=== PATIENT | female | born 1975 ===

== ENCOUNTER 2018-12-06 08:20 | Emergency (ER) | payer OTHER ==
[~2018-12-06] VITALS: Ht 157.5 cm; Wt 96.2 kg
[2018-12-06] MEDS ORDERED: ASPIR 8181 MG PO (08:50)
== END 2018-12-06 17:55 | disposition home or self-care (01) ==
LOC: ER 08:20
DX: O26.892 Other specified pregnancy related conditions, second trimester (principal); K52.9 Noninfective gastroenteritis and colitis, unspecified; Z34.82 Encounter for supervision of other normal pregnancy, second trimester